=== PATIENT | male | born 2000 | race Caucasian/White ===

== ENCOUNTER 2018-02-14 12:11 | Emergency (ER) | payer OTHER ==
[2018-02-14 12:15] VITALS: BP 135/68; PULSE 84; RESP 20; TEMP 98.1
[2018-02-14] MEDS ORDERED: DIPH,PERTUS(ACELL)TETVAC-LF 0.5 ML VIAL IM ONE (12:34)
--- NOTE | 2018-02-14 12:44 | ED ---
Wound/Laceration HPI - General Chief Complaint: Wound/Laceration Stated Complaint: rt hand laceration Time Seen by Provider: 02/14/18 12:27 Source: patient Mode of arrival: ambulatory Limitations: no limitations - History of Present Illness Initial Comments: This a 18-year-old male who denies past medical history with allergy to ceftriaxone he states this was anaphylaxis presents today for chief complaint of laceration to the base of the right ring finger 2 days ago. Patient states that he was brien using flat metal, cutting caulk when he cut the top of his hand on the dorsal aspect near the base of the right ring finger on an edge of metal. He states they cleaned out iodine and continued to work that day. Today he noticed that there is surrounding redness, and warmth to palpation, he was concerned about infection. Patient denies any decreased range motion, numbness , tingling, loss sensation, fever, chills or night sweats. Patient denies any swelling of the right ring finger or pain with range motion. Remainder ROS was negative. Patient does not know his last tetanus. - Related Data Home Medications Medication Instructions Recorded Confirmed Ibuprofen [Motrin Ib] 600 mg PO Q6H PRN 02/14/18 02/14/18 Previous Rx's Medication Instructions Recorded Clindamycin [Cleocin] 450 mg PO Q8H 5 Days #15 capsule 02/14/18 Allergies Allergy/AdvReac Type Severity Reaction Status Date / Time ceftriaxone sodium Allergy Anaphylaxis Verified 02/14/18 12:26 [From Rocephin] Review of Systems ROS Statement: Those systems with pertinent positive or pertinent negative responses have been documented in the HPI. ROS Other: All systems not noted in ROS Statement are negative. Constitutional: Denies: fever, chills, night sweats ENT: Denies: ear pain, throat pain Respiratory: Denies: cough, dyspnea, wheezes, hemoptysis, stridor Cardiovascular: Denies: chest pain, palpitations, dyspnea on exertion Gastrointestinal: Denies: nausea, vomiting, diarrhea, constipation, hematemesis , melena Genitourinary: Denies: urgency, dysuria Musculoskeletal: Denies: back pain Skin: Reports: as per HPI, lesions (1cm laceration to the dorsal aspect of the right hand near the MCP of ring finger) Neurological: Denies: headache, numbness, paresthesias, confusion Past Medical History Additional Past Medical History / Comment(s): Back Pain, scoliosis, HEADACHES History of Any Multi-Drug Resistant Organisms: None Reported Past Surgical History: Tonsillectomy Past Psychological History: No Psychological Hx Reported Smoking Status: Current every day smoker Past Alcohol Use History: None Reported Past Drug Use History: Marijuana General Exam - General Exam Comments Initial Comments: General: The patient is awake and alert, in no distress, and does not appear acutely ill. Eye: Pupils are equal, extra-ocular movements are intact. No nystagmus. There is normal conjunctiva bilaterally. No signs of icterus. Cardiovascular: There is a regular rate and rhythm. No murmur, rub or gallop is appreciated. Respiratory: Lungs are clear to auscultation, respirations are non-labored, breath sounds are equal. No wheezes, stridor, rales, or rhonchi. Musculoskeletal: No joint swelling, or pain to palpation over the flexor or extensor surfaces of the hands b/l. Full ROM at the MCP, PIP and DIP joint of the hands b/l, no tenderness. Strength 5/5 at the joint of the hands b/l each joint of the right hand tested individually. Sensation intact of the UE equally b/l. Radial pulses equal bilaterally 2+. Capillary refill <2seconds. Neurological: A&O x 3. CN II-XII intact, There are no obvious motor or sensory deficits. Coordination appears grossly intact. Speech is normal. Skin: Skin is warm and dry and no rashes. 1 cm laceration with devitalized edges, no active drainage, granulation tissue present inside of wound. Surrounding erythema with warmth to palpation circumferentially around laceration. No palpable abscess. Psychiatric: Cooperative, appropriate mood & affect, normal judgment. Limitations: no limitations Course Vital Signs 02/14/18 12:13 Temperature 98.1 F Pulse Rate 84 Respiratory 20 Rate Blood Pressure 135/68 O2 Sat by Pulse 99 Oximetry Medical Decision Making - Medical Decision Making TDaP administered. Wound cleansed with sterile water and iodine, covered in sterile bandage and bacitracin. Given timing of injury and PE primary closure was not felt appropriate at this time. No signs or symptoms of tenosynovitis or tendon involvement. Pt had allergy to ceftriaxone and was given clindamycin for cellulitis without abscess of the right hand dorsal aspect near the base of the right ring 450mg q8hx5 days, with instruction to follow-up with primary care provider one to days. Patient was instructed to return to emergency department for any worsening symptoms. Including fever and chills. Patient verbalized agreement with plan and was discharged in stable condition. Prior to discharge case discussed in detail Dr. Shah who agrees with impression and plan. Disposition Clinical Impression: Cellulitis of hand excluding fingers Disposition: HOME SELF-CARE Condition: Good Instructions: Cellulitis (ED) Additional Instructions: Please use medication as discussed. Please follow-up with family doctor in the next 2 days.. Please return to emergency room if the symptoms increase or worsen or for any other concerns, as discussed. Prescriptions: Clindamycin [Cleocin] 450 mg PO Q8H 5 Days #15 capsule Is patient prescribed a controlled substance at d/c from ED?: No Referrals: None,Stated [Primary Care Provider] - 1-2 days [facility] [[facility]] - 1-2 days Time of Disposition: 12:49
== END 2018-02-14 13:25 | disposition home or self-care (01) ==
LOC: EC 12:11
DX: L03.113 Cellulitis of right upper limb (principal); S61.411A Laceration without foreign body of right hand, initial encounter; F17.200 Nicotine dependence, unspecified, uncomplicated; Z88.1 Allergy status to other antibiotic agents; Z23 Encounter for immunization; W45.8XXA Other foreign body or object entering through skin, initial encounter; Y93.89 Activity, other specified; Y99.0 Civilian activity done for income or pay
CPT/HCPCS: 90471; 90715; 99282

== ENCOUNTER 2018-12-15 11:34 | Emergency (ER) | payer OTHER ==
[2018-12-15 12:00] VITALS: BP 130/73; PULSE 64; RESP 18; TEMP 98.1
[2018-12-15] MEDS ORDERED: ACET/COD 300 MG/30 MG STARTER PACK 6 TAB BTL PO STA (12:51)
--- NOTE | 2018-12-15 12:57 | ED ---
ENT HPI - General Chief complaint: Dental/Oral Stated complaint: Tooth pain Time Seen by Provider: 12/15/18 12:02 Source: patient, family, RN notes reviewed Mode of arrival: ambulatory Limitations: no limitations - History of Present Illness Initial comments: 18-year-old male presents emergency Department chief complaint left lower dental pain. Patient states that he's had a broken tooth for a while states that is worsened over the last day. Patient denies any fevers or chills. Patient has not follow-up with dentist. She does not have current dental insurance. Patient denies any difficulty swallowing no headache no dizziness no neck pain or neck stiffness - Related Data Home Medications Medication Instructions Recorded Confirmed Ibuprofen [Motrin Ib] 600 mg PO Q6H PRN 02/14/18 02/14/18 Previous Rx's Medication Instructions Recorded Clindamycin [Cleocin] 450 mg PO Q8H 5 Days #15 capsule 02/14/18 Ibuprofen [Motrin] 600 mg PO Q8HR PRN #30 tab 12/15/18 Penicillin V Potassium [Pen Vee K] 500 mg PO QID #40 tablet 12/15/18 Allergies Allergy/AdvReac Type Severity Reaction Status Date / Time ceftriaxone sodium Allergy Anaphylaxis Verified 02/14/18 12:26 [From Rocephin] Review of Systems ROS Statement: Those systems with pertinent positive or pertinent negative responses have been documented in the HPI. ROS Other: All systems not noted in ROS Statement are negative. Past Medical History Additional Past Medical History / Comment(s): Back Pain, scoliosis, HEADACHES History of Any Multi-Drug Resistant Organisms: None Reported Past Surgical History: Tonsillectomy Past Psychological History: No Psychological Hx Reported Smoking Status: Current every day smoker Past Alcohol Use History: Occasional Past Drug Use History: Marijuana General Exam Limitations: no limitations General appearance: alert, in no apparent distress Head exam: Present: atraumatic, normocephalic, normal inspection Eye exam: Present: normal appearance, PERRL, EOMI. Absent: scleral icterus, conjunctival injection, periorbital swelling ENT exam: Present: mucous membranes moist. Absent: normal oropharynx (Dental fracture #17 no abscess) Course Vital Signs 12/15/18 11:57 Temperature 98.1 F Pulse Rate 64 Respiratory 18 Rate Blood Pressure 130/73 O2 Sat by Pulse 98 Oximetry Medical Decision Making - Medical Decision Making 18-year-old male presented for dental pain. Patient placed on antibiotics. Patient advised follow-up with dentist or dental clinic. Return parameters were discussed. Disposition Clinical Impression: Fracture of tooth, Toothache Disposition: HOME SELF-CARE Condition: Stable Instructions (If sedation given, give patient instructions): Toothache (ED) Additional Instructions: Please return to the Emergency Department if symptoms worsen or any other concerns.Please follow up with the [facility] dental clinic. [facility] [place] [address]. Phone number for new patients or [phone] for existing patients. Prescriptions: Ibuprofen [Motrin] 600 mg PO Q8HR PRN #30 tab PRN Reason: Pain Penicillin V Potassium [Pen Vee K] 500 mg PO QID #40 tablet Is patient prescribed a controlled substance at d/c from ED?: No Referrals: None,Stated [Primary Care Provider] - 1-2 days Time of Disposition: 12:57
== END 2018-12-15 13:06 | disposition home or self-care (01) ==
LOC: EC 11:34
DX: S02.5XXA Fracture of tooth (traumatic), initial encounter for closed fracture (principal); F17.200 Nicotine dependence, unspecified, uncomplicated; Z88.1 Allergy status to other antibiotic agents
CPT/HCPCS: 99282

== ENCOUNTER 2021-01-19 13:22 | Emergency (ER) | payer OTHER ==
[2021-01-19 14:07] VITALS: BP 120/85; PULSE 64; RESP 18; TEMP 98.5
[2021-01-19] MEDS ORDERED: KETOROLAC 15 MG/ML 1 ML VIAL IM STA (14:47)
[2021-01-19] MEDS ORDERED: AMOXIC-POT CLAV 875-125MG 1 EACH TAB PO STA (14:47)
[2021-01-19] MEDS ORDERED: ACET/COD 300 MG/30 MG STARTER PACK 6 TAB BTL PO STA (14:47)
--- NOTE | 2021-01-19 14:48 | ED ---
ENT HPI - General Chief complaint: Dental/Oral Stated complaint: dental pain Time Seen by Provider: 01/19/21 14:21 Source: patient Mode of arrival: ambulatory Limitations: no limitations - History of Present Illness Initial comments: 21-year-old male presents to emergency Department with a chief complaint abdominal pain. Patient reports symptoms started several days ago. Reports most of the pain is located in the left upper region of the teeth. Patient reports mild swelling on the left side of the face. States the pain is worsened region is palpated. Is also worse whenever he is eating and alleviated at rest. Reports taking [id number] analgesics with some improvement in his symptoms. Denies any fevers or chills. States he has had an abscess in the tooth before. Has not seen a dentist in quite some time. - Related Data Home Medications Medication Instructions Recorded Confirmed Ibuprofen [Motrin Ib] 600 mg PO Q6H PRN 02/14/18 02/14/18 Previous Rx's Medication Instructions Recorded Clindamycin [Cleocin] 450 mg PO Q8H 5 Days #15 capsule 02/14/18 Ibuprofen [Motrin] 600 mg PO Q8HR PRN #30 tab 12/15/18 Penicillin V Potassium [Pen Vee K] 500 mg PO QID #40 tablet 12/15/18 Amoxicillin/Potassium Clav 1 tab PO Q12HR #20 tab 01/19/21 [Augmentin 875-125 Tablet] Allergies Allergy/AdvReac Type Severity Reaction Status Date / Time ceftriaxone sodium Allergy Anaphylaxis Verified 01/19/21 14:07 [From Rocephin] Review of Systems ROS Statement: Those systems with pertinent positive or pertinent negative responses have been documented in the HPI. ROS Other: All systems not noted in ROS Statement are negative. Past Medical History Additional Past Medical History / Comment(s): Back Pain, scoliosis, HEADACHES History of Any Multi-Drug Resistant Organisms: None Reported Past Surgical History: Tonsillectomy Past Psychological History: No Psychological Hx Reported Smoking Status: Current every day smoker Past Alcohol Use History: Occasional Past Drug Use History: Marijuana General Exam Limitations: no limitations General appearance: alert, in no apparent distress Head exam: Present: atraumatic, normocephalic, normal inspection Eye exam: Present: normal appearance, PERRL, EOMI Pupils: Present: normal accommodation ENT exam: Present: normal exam, mucous membranes moist. Absent: normal oropharynx (Dental abscess noted left upper region. Dental caries), TM's normal bilaterally, normal external ear exam Neck exam: Present: normal inspection, full ROM. Absent: tenderness, lymphadenopathy Respiratory exam: Present: normal lung sounds bilaterally. Absent: respiratory distress Extremities exam: Present: normal inspection, full ROM. Absent: tenderness Back exam: Present: normal inspection, full ROM. Absent: tenderness Neurological exam: Present: alert, oriented X3 Psychiatric exam: Present: normal affect, normal mood Skin exam: Present: warm, dry, intact, normal color Course Vital Signs 01/19/21 14:03 Temperature 98.5 F Pulse Rate 64 Respiratory 18 Rate Blood Pressure 120/85 O2 Sat by Pulse 98 Oximetry Procedures - Incision & Drainage Consent Obtained: verbal consent Indication: Dental abscess Site: oral Size (cm): 1 Sterile Field Used?: No Needle Aspiration Performed?: Yes I&D Drainage Obtained: Pus, Blood Culture Obtained?: No Complications: pain, bleeding Patient Tolerated Procedure: well, no complications Medical Decision Making - Medical Decision Making 21-year-old male presents emergency Department with a chief complaint abdominal pain. Patient had a dental abscess. I was able to perform incision and drainage. Patient tolerated procedure well. There was purulent drainage embroiled. She'll be started on Augmentin. Also given symptomatic relief here with Toradol and Tylenol 3. He was advised to follow with a dentist. I gave him information for local [facility]. Return parameters were thoroughly discussed the patient was up standing agreeable. Disposition Clinical Impression: Dental abscess Disposition: HOME SELF-CARE Condition: Stable Instructions (If sedation given, give patient instructions): Abscess (ED), Toothache (ED) Additional Instructions: Please return to the Emergency Department if symptoms worsen or any other concerns. Prescriptions: Amoxicillin/Potassium Clav [Augmentin 875-125 Tablet] 1 tab PO Q12HR #20 tab Is patient prescribed a controlled substance at d/c from ED?: No Referrals: None,Stated [Primary Care Provider] - 1-2 days Time of Disposition: 14:48
== END 2021-01-19 15:29 | disposition home or self-care (01) ==
LOC: EC 13:22
DX: K04.7 Periapical abscess without sinus (principal); F17.200 Nicotine dependence, unspecified, uncomplicated; F12.90 Cannabis use, unspecified, uncomplicated; Z88.1 Allergy status to other antibiotic agents; Z90.89 Acquired absence of other organs
CPT/HCPCS: 99282; 96372; 41800; J1885